=== PATIENT | male | born 1965 | race Caucasian/White ===

== ENCOUNTER → 2017-06-30 | Outpatient (CLI) | payer OTHER ==
[~2017-06-30] MED LIST: DULOXETINE HCL20 MG PO; FLEXERIL10 MG PO; GLIPIZIDE XL5 MG PO; JANUVIA100 MG PO; JARDIANCE10 MG PO; LUNESTA3 MG PO; METFORMIN HCL1000 MG PO; NAPROXEN500 MG PO; NORCO 5/3251 TABLET PO; PRAVASTATIN SOD20 MG PO; WELLBUTRIN SR150 MG PO; XANAX0.5 MG PO
== END | disposition home or self-care (01) ==
LOC: CDC 12:41
DX: Z01.810 Encounter for preprocedural cardiovascular examination (principal); K40.90 Unilateral inguinal hernia, without obstruction or gangrene, not specified as recurrent
CPT/HCPCS: 93000

== ENCOUNTER 2017-07-05 05:42 | Day surgery (SDC) | payer OTHER ==
[~2017-07-05] VITALS: Ht 175.3 cm; Wt 104.0 kg
[2017-07-05 06:13] VITALS: BP 128/82
[2017-07-05] MEDS ORDERED: COLACE100 MG PO (07:27)
[2017-07-05] MEDS ORDERED: DILAUDID4 MG PO (07:27)
[2017-07-05] MEDS ORDERED: ONDANSETRON HCL8 MG PO (07:27)
[2017-07-05 12:24] VITALS: BP 129/77
[2017-07-05 13:28] VITALS: BP 140/86
== END 2017-07-05 13:55 | disposition home or self-care (01) ==
LOC: SDC
PROVIDERS: Surgery
PROC: 0YU64JZ Supplement Left Inguinal Region with Synthetic Substitute, Percutaneous Endoscopic Approach (ICD-10-PCS; principal; 2017-07-05)
DX: K40.90 Unilateral inguinal hernia, without obstruction or gangrene, not specified as recurrent (principal); M51.06 Intervertebral disc disorders with myelopathy, lumbar region; E78.2 Mixed hyperlipidemia; E11.65 Type 2 diabetes mellitus with hyperglycemia; G47.33 Obstructive sleep apnea (adult) (pediatric); Z82.49 Family history of ischemic heart disease and other diseases of the circulatory system; Z87.891 Personal history of nicotine dependence; Z79.82 Long term (current) use of aspirin; Z79.84 Long term (current) use of oral hypoglycemic drugs
CPT/HCPCS: 82948; C1781; J0131; J0330; J0690; J2250; J2405; J2710; J3010; J7643; S0020